=== PATIENT | male | born 2000 | race Caucasian/White ===

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

== ENCOUNTER → 2019-10-17 | Outpatient (CLI) | payer BC, OTHER ==
[2019-10-17 12:42] LABS: CHLAM PCR NOT DETECTED (NOT DETECT)
== END ==
LOC: OD 10:20
PROVIDERS: ATTEND Pediatrics
DX: Z72.51 High risk heterosexual behavior (principal)
CPT/HCPCS: 36415; 86592; 86701; 87491; 87591

== ENCOUNTER → 2019-10-20 | Outpatient (CLI) | payer MEDICAID, OTHER ==
--- NOTE | 2019-10-20 15:31 | RADIOLOGY REPORT (SQ) ---
EXAM DESCRIPTION: U/S SCROTUM W/O DOPPLER IMAGES COMPLETED DATE/TIME: 10/20/2019 3:11 pm REASON FOR STUDY: N50.819 TESTICULAR PAIN, UNSPECIFIED N50.819 TESTICULAR PAIN, UNSPECIFIED COMPARISON: 11/01/2015 TECHNIQUE: Static and realtime wadsworth scale imaging of the scrotum and testes. Selected color Doppler and spectral images recorded to document blood flow. LIMITATIONS: None. FINDINGS: RIGHT: TESTICLE: Normal size. Normal echotexture. Normal blood flow. No mass. EPIDIDYMIS: Normal. HYDROCELE OR VARICOCELE: No. HERNIA OR EXTRA-TESTICULAR MASS: No. OTHER: Incidental note made of an appendix testis without evidence of torsion. LEFT: TESTICLE: Normal size. Normal echotexture. Normal blood flow. No mass. EPIDIDYMIS: Normal. HYDROCELE OR VARICOCELE: No. HERNIA OR EXTRA-TESTICULAR MASS: No. OTHER: No other significant finding. IMPRESSION: NORMAL SCROTAL ULTRASOUND. NO EVIDENCE OF TESTICULAR MASS OR TORSION. TECHNICAL DOCUMENTATION: JOB ID: [id number] [employer]- All Rights Reserved Reading location - IP/workstation name: [email or web address]
== END ==
LOC: RAD 14:45
PROVIDERS: ATTEND Physician Assistant
DX: N50.819 Testicular pain, unspecified (principal)
CPT/HCPCS: 76870